=== PATIENT | male | born 1950 | race Caucasian/White ===

== ENCOUNTER 2020-07-14 07:29 | Outpatient (REF) | payer MEDICARE, OTHER, SELFPAY ==
[2020-07-14 12:12] LABS: Alanine Aminotransferase 32 U/L (0-40); Albumin Level 4.6 g/dL (3.5-5.0); Alkaline Phosphatase 65 U/L (39-117); Anion Gap 14 (12-20); Aspartate Amino Transferase 20 U/L (5-37); Bilirubin Total 1.6 mg/dL (0.0-1.0); Blood Urea Nitrogen 15 mg/dL (9-16); Calcium 10.2 mg/dL (8.4-10.2); Carbon Dioxide 29 mmol/L (22-29); Chloride 104 mmol/L (96-108); Cholesterol 143 mg/dL; Estimated Glomerular Filt Rate > 60; Glucose Fasting 108 mg/dL (60-99); HDL Cholesterol 45 mg/dL; LDL Cholesterol Calculated 79 mg/dl; Potassium 4.9 mmol/l (3.3-5.1); Prostate Specific Antigen Scr 0.66 ng/mL (<0.05-4.0); Sodium 142 mmol/L (135-145); Total Protein 7.3 g/dL (6.5-8.0); Triglycerides 96 mg/dL
== END 2020-07-14 07:30 | disposition home or self-care (01) ==
LOC: HO.HMGCLDS 07:29
PROVIDERS: PCP Nurse Practitioner Family; Visit Provider Nurse Practitioner Family
DX: R17 Unspecified jaundice (principal); I10 Essential (primary) hypertension; Z12.5 Encounter for screening for malignant neoplasm of prostate
CPT/HCPCS: 36415; 80053; 80061; 84153; 84443

== ENCOUNTER 2020-09-10 07:26 | Outpatient (REF) | payer MEDICARE, OTHER, SELFPAY ==
[2020-09-10 12:08] LABS: Bilirubin Direct 0.4 mg/dL (0.0-0.5); Bilirubin Total 1.1 mg/dL (0.0-1.0)
== END 2020-09-10 07:27 | disposition home or self-care (01) ==
LOC: HO.HMGCLDS 07:26
PROVIDERS: PCP Nurse Practitioner Family; Visit Provider Nurse Practitioner Family
DX: R17 Unspecified jaundice (principal)
CPT/HCPCS: 36415; 82247; 82248

== ENCOUNTER 2022-03-02 07:33 | Outpatient (REF) | payer MEDICARE, OTHER, SELFPAY ==
[2022-03-02 11:29] LABS: Appearance Urine Turbid; Color Urine Yellow; Glucose Urine UA Negative (Negative); Leukocyte Esterase Urine Negative (Negative); Nitrite Urine Negative (Negative); PH 5.5 (5.0-9.0); Specific Gravity - Urine 1.025 (1.005-1.025); Urine Blood Trace (Negative); Urine Ketones Negative (Negative); Urine Protein Negative (Neg-Trace)
[2022-03-02 11:36] LABS: Bacteria Urine None Seen (None Seen); Hyaline Casts Urine 0-2 /LPF (0-2); RBC Urine 0-2 /HPF (0-2); Squamous Epithelial Cell Urine 0-2 /HPF (0-2); WBC Urine 0-5 /HPF (0-5)
[2022-03-02 11:49] LABS: Alanine Aminotransferase 38 U/L (0-40); Albumin Level 4.3 g/dL (3.5-5.0); Alkaline Phosphatase 52 U/L (39-117); Anion Gap 12 (12-20); Aspartate Amino Transferase 26 U/L (5-37); Bilirubin Total 1.2 mg/dL (0.0-1.0); Blood Urea Nitrogen 17 mg/dL (9-16); Carbon Dioxide 25 mmol/L (22-29); Chloride 107 mmol/L (96-108); Cholesterol 147 mg/dL; Estimated Glomerular Filt Rate > 60; Glucose Fasting 109 mg/dL (60-99); HDL Cholesterol 44 mg/dL; LDL Cholesterol Calculated 85 mg/dl; Potassium 4.2 mmol/L (3.3-5.1); Sodium 140 mmol/L (135-145); Triglycerides 93 mg/dL
[2022-03-02 12:15] LABS: Prostate Specific Antigen Scr 0.47 ng/mL (<0.05-4.0); TSH reflex Free T4 2.31 uIU/mL (0.32-4.0)
== END 2022-03-02 07:34 | disposition home or self-care (01) ==
LOC: HO.HMGCLDS 07:33
PROVIDERS: PCP Nurse Practitioner Family; Visit Provider Nurse Practitioner Family
DX: Z12.5 Encounter for screening for malignant neoplasm of prostate (principal); I10 Essential (primary) hypertension
CPT/HCPCS: 36415; 80053; 80061; 81001; 84153; 84443

== ENCOUNTER → 2022-06-29 09:26 | Outpatient (REF) | payer MEDICARE, OTHER, SELFPAY ==
--- NOTE | 2022-06-29 09:29 | CA_ITS ---
Transthoracic Echocardiogram Patient (Last, First, Middle): Angelo Johnson E Gender: Male Date of : 1950 Age: 72 Procedure Date: 06/29/2022 Procedure Type: Transthoracic Echocardiogram Location: OP Height: 175.26 cm Weight: 92.99 kg BSA: 2.09 m2 Heart Rate: bpm BP: 140 / 88 mmHg Gluing Machine Feeder: TO Referring MD: Didier Barahona [facility] Symptoms: R01.1 - Cardiac murmur, unspecified Study Quality: Fair ECG Rhythm: Sinus Conclusions: - The left ventricular systolic function is normal. The calculated ejection fraction is 57% by biplane method. - There is mildly increased left ventricular wall thickness. - There is moderate septal asymmetric hypertrophy. - There is mild mitral valve regurgitation. - There is mild tricuspid valve regurgitation. - There is mild dilatation of the ascending aorta measuring 4.20 cm. Findings Left Ventricle Normal left ventricular cavity size. There is mildly increased left ventricular wall thickness. The left ventricular systolic function is normal. The calculated ejection fraction is 57% by biplane method. There is no evidence of regional wall motion abnormalities. Diastolic function is normal for age. There is moderate septal asymmetric hypertrophy. Right Ventricle Normal right ventricular cavity size and systolic function. Atria Both atria are normal in size. Aortic Valve There is a normal trileaflet aortic valve. There is mild calcification of the aortic valve. There is no aortic valve stenosis. There is no aortic valve regurgitation. Mitral Valve The mitral valve appears normal. There is mild mitral valve regurgitation. There is no mitral valve stenosis. Pulmonic Valve The pulmonic valve is likely normal. Tricuspid Valve Normal tricuspid valve structure. There is mild tricuspid valve regurgitation. There is no evidence of pulmonary hypertension. Great Vessels There is mild dilatation of the ascending aorta measuring 4.20 cm. Venous The inferior vena cava is normal in size and collapses greater than 50% with inspiration. Pericardium/Pleural There is no evidence of pericardial effusion. Prior Study Comparison No prior study available for comparison. Measurements 2D Linear Measurements IVSd: 1.29 0.6-0.9/0.6-1.0 cm LVIDd: 4.94 3.9-5.3/4.2-5.9 cm LVIDd Index: 2.36 2.4-3.2/2.2-3.1 cm/m2 LVIDs: 2.75 2.0-3.6 cm LVPWd: 1.19 0.7-1.1 cm LA Diam: 4.10 2.7-3.8/3.0-4.0 cm LAIDs Index: 1.96 1.5-2.3 cm/m2 LV Mass: 299.48 67-162/88-224 g LV Mass Index: 143.29 43-95/49-115 g/m2 LVOT Diam: 2.20 3.0+(-)1.3 cm 2D Systolic Function EF 4C: 56.70 >55% EF 2C: 60.00 >55% EF BiP: 56.70 >55% Mitral Valve MV Pk E: 0.75 MV PK A: 1.08 MV Decel Time: 241.00 E/A: 0.70 E'Lateral: 6.96 E'Medial: 5.44 E/E' Med: 13.70 E/E' Lat: 10.70 PHT: 71.00 MVA PHT: 3.10 Decel [place]: 3.10 Aortic Valve AoV Pk [place]: 1.75 AoV Mn [place]: 1.26 AoV VTI: 0.39 AoV Pk Grad: 12.00 Aov Mn Grad: 7.00 BUZZ Cont.VTI: 2.23 LVOT LVOT Pk [place]: 1.17 LVOT Mn [place]: 0.71 LVOT VTI: 0.23 LVOT Pk Grad: 5.00 LVOT Mn Grad: 2.00 LVOT Diam: 2.20 LVOT Area: 3.80 Diastolic Function MV Pk E: 0.75 MV Pk A: 1.08 E/A: 0.70 E'Medial: 5.44 E/E' Med: 13.70 E' Laterial: 6.96 E/E' Lat: 10.70 Right Ventricle TAPSE (mm): 22.30 TVS' [place]: 18.00 Tricuspid Valve TR Pk [place]: 2.76 TR Pk Grad: 30.00 RA Press: 3.00 RVSP: 33.00 Great Vessels Aorta Sinus of Valsalva: 3.75 2.0-3.[address] [place]: 3.20 1.7-3.4 cm Ao Asc: 4.20 2.1-3.4 cm Updated in Other Vendor System with Status of Final Wayne Duran MD electronically signed on 07/01/2022 1:33:35 PM with status of Final
== END ==
LOC: HO.CARD 09:26
PROVIDERS: PCP Nurse Practitioner Family; Visit Provider Nurse Practitioner Family
DX: R01.1 Cardiac murmur, unspecified (principal)
CPT/HCPCS: 93306

== ENCOUNTER 2023-02-22 09:42 | Outpatient (AMB) | payer MEDICARE, OTHER, SELFPAY ==
[2023-02-22 09:48] VITALS: BP 138/74; PULSE 62; O2SAT 97; BMI 31.1
--- NOTE | 2023-02-22 09:48 | A.OFFPC_ITS ---
Vital Signs 02/22/23 09:48 Height 5 ft 8 in Weight 204 lb 8 oz BMI 31.1 BP 138/74 Blood Pressure Location Rt brachial Position Sitting Pulse 62 Pulse Source Pulse Oximeter Pulse Oximetry (%) 97 Oxygen Delivery Method Room Air Intake Visit Reasons: 4 month follow up HTN Allergies shellfish Allergy (Unknown, Uncoded 02/22/23 09:50) gout issues Medication List - Last Reconciled 02/22/23 by FAUSTINO Hamilton amlodipine 10 mg PO DAILY 90 days atorvastatin 10 mg PO DAILY hydrochlorothiazide 12.5 mg PO DAILY 90 days lisinopril 40 mg PO DAILY 90 days minoxidil 2.5 mg PO DAILY Tobacco use date assessed: 02/22/23 Fall risk assessment: No Falls in past year Last assessed Fall Risk: 02/22/23 Dental Screening Dental Screen Date: 02/22/23 Did you have a dental visit in the last 12 months?: Yes Did you have a dental problem in the last 6 months where you did not have access to dental care?: No Was dental information given to patient?: Patient has dentist HPI 4 month follow up HTN HPI Details HTN: Blood pressure is managed with amlodipine 10mg, lisinopril 40mg, and minoxidil 2.5mg. Pt reports that his blood pressure at home is in the upper 130s/80s. Will add hydrochlorothiazide 12.5mg. Denies chest pain, shortness of breath, headache, dizziness, and blurred vision. PFSH Surgical History H/O inguinal hernia repair Family History Father CVD (cardiovascular disease) Mother Stroke Social History Housing: House Alcohol intake: current Alcohol intake frequency: a few times a week Patient Tobacco Use Status: Never used Tobacco e-Cigarette/Vaping Use: Never Used Second Hand Smoke Exposure: No Current occupational status: retired Cognitive needs: No Hearing needs: No Vision needs: Yes Questionnaire Thrive Questionnaire Date Thrive assessed: 07/18/22 MILDRED-7 AMB Questionnaire MILDRED-7 Date MILDRED - 7 assessed: 07/18/22 Source: Developed by Drs. Brooks Sahu, Lory Vegas, Frankie Boss and colleagues, with an educational paul from [employer]. Review of Systems Const Reports as per HPI Physical exam (Primary Care) Vital Signs: Last Vital Signs Pulse 62 02/22/23 09:48 BP 138/74 02/22/23 09:48 Pulse Ox 97 02/22/23 09:48 Oxygen Delivery Method Room Air 02/22/23 09:48 BMI result Body Mass Index 31.1 Tobacco/Smoking Status: Tobacco use Status Tobacco use date assessed 02/22/23 02/22/23 09:53 Patient Tobacco Use Status Never used Tobacco 02/22/23 09:53 e-Cigarette/Vaping Use Never Used 02/22/23 09:53 Thrive Assessment: Date of Thrive Assessment Date Thrive assessed 07/18/22 02/22/23 09:53 Const General: cooperative Nutritional Appearance: obese Orientation/consciousness: patient oriented x3 Resp Effort & Inspection: normal respiratory effort Auscultation: clear to auscultation bilaterally Cardio Rate: regular rate Rhythm: regular rhythm Heart sounds: S1 normal heart sound present, S2 normal heart sound present and Murmur heart sound present systolic (faint) Neuro General: patient oriented x3 Extrem Right lower extremity: no edema Left lower extremity: no edema Psych Appearance: grossly normal Mental Status: mental status grossly normal Speech and movement: Normal speech and movement present Affect: normal affect Attitude: cooperative Thought process: Normal thought process present Thought content: Normal thought content present Insight: Good insight present (Psych) Judgement: Good judgement present (Psych) Assessment and Plan Assessment & Plan (1) HTN (hypertension): Comment: will cont to monitor BPs at home Code(s): I10 - Essential (primary) hypertension (2) Screening PSA (prostate specific antigen): Code(s): Z12.5 - Encounter for screening for malignant neoplasm of prostate Plan The patient agreed to the use of a medical imaging technologist for this encounter. Scribed for FAUSTINO Norris by korey Wu scribe, on 02/22/2023 at 10:00 EST. Orders: Orders Complete Blood Count Auto Diff Today I10 - Essential (primary) hypertension Comprehensive [place]. Panel Fast Today I10 - Essential (primary) hypertension TSH reflex Free T4 Today I10 - Essential (primary) hypertension UA CC w/rflx Micro + Cult Today I10 - Essential (primary) hypertension Lipid Panel Today I10 - Essential (primary) hypertension Prostate Specific Antigen Scr Today Z12.5 - Encounter for screening for malignant neoplasm of prostate AMB EKG-In Office Today I10 - Essential (primary) hypertension Medications: New hydrochlorothiazide 12.5 mg PO DAILY 90 tabs 0RF 90 days Coding Level of Care Code Est Pt Level 3 (58054) Diagnoses HTN (hypertension) I10 Screening PSA (prostate specific antigen) Z12.5
== END 2023-02-22 10:34 | disposition home or self-care (01) ==
PROVIDERS: Visit Provider Nurse Practitioner Family
DX: I10 Essential (primary) hypertension (principal); Z12.5 Encounter for screening for malignant neoplasm of prostate
CPT/HCPCS: 99213

== ENCOUNTER 2023-06-22 07:57 | Outpatient (REF) | payer MEDICARE, OTHER, SELFPAY ==
[2023-06-22 11:27] LABS: MANUAL DIFF FLAG NO
[2023-06-22 11:33] LABS: Basophils Percent Auto 0.6 % (0-2); Eosinophils Absolute Auto 0.1 X10*3/uL (0.0-0.4); Hematocrit 42.8 % (42.0-52.0); Hemoglobin 14.4 g/dl (14.0-18.0); Imm Gran Abs Auto 0.03 X10*3/uL (0.00-0.03); Imm Gran Pct Auto 0.6 % (0.0-0.4); Lymphocytes Absolute Auto 1.6 X10*3/uL (1.2-4.9); Lymphocytes Percent Auto 34.5 % (20-40); Mean Corpuscular HGB Conc 33.6 g/dl (31.0-36.0); Mean Corpuscular Hemoglobin 32.8 pg (27.0-33.0); Mean Corpuscular Volume 97.5 fL (80.0-98.0); Mean Platelet Volume 10.9 fL (9.4-12.4); Monocytes Absolute Auto 0.5 X10*3/uL (0.1-1.2); Monocytes Percent Auto 11.3 % (2-11); Neutrophils Absolute Auto 2.3 x10*3/uL (2.0-8.3); Platelet Count 162 X10*3/uL (160-400); Red Blood Count 4.39 X10*6/uL (4.60-5.80); Red Cell Distribution Width 12.8 % (11.0-16.0); White Blood Count 4.7 X10*3/uL (4.8-10.8)
[2023-06-22 11:37] LABS: Appearance Urine Clear; Color Urine Yellow; Glucose Urine UA Negative (Negative); Leukocyte Esterase Urine Small (1+) (Negative); Nitrite Urine Negative (Negative); PH 5.5 (5.0-9.0); UMIC TRIGGER UACC YES; Urine Blood Small (1+) (Negative); Urine Ketones Negative (Negative); Urine Protein Negative (Neg-Trace)
[2023-06-22 11:47] LABS: Bacteria Urine None Seen (None Seen); Hyaline Casts Urine 0-2 /LPF (0-2); RBC Urine 0-2 /HPF (0-2); Squamous Epithelial Cell Urine 0-2 /HPF (0-2); UACC Culture Trigger YES
[2023-06-22 12:09] LABS: Alanine Aminotransferase 27 U/L (0-40); Albumin Level 4.1 g/dL (3.5-5.0); Alkaline Phosphatase 53 U/L (39-117); Anion Gap 10 (12-20); Aspartate Amino Transferase 21 U/L (5-37); Bilirubin Total 1.2 mg/dL (0.0-1.0); Blood Urea Nitrogen 11 mg/dL (9-16); Calcium 10.2 mg/dL (8.4-10.2); Carbon Dioxide 25 mmol/L (22-29); Chloride 110 mmol/L (96-108); Cholesterol 138 mg/dL (<200); Estimated Glomerular Filt Rate > 60; Glucose Fasting 115 mg/dL (60-99); HDL Cholesterol 48 mg/dL (>40); LDL Cholesterol Calculated 76 mg/dL (<100); Sodium 141 mmol/L (135-145); Triglycerides 73 mg/dL (<150)
[2023-06-22 12:26] LABS: TSH reflex Free T4 2.09 uIU/mL (0.32-4.0)
== END 2023-06-22 07:58 | disposition home or self-care (01) ==
LOC: HO.HMGCLDS 07:57
PROVIDERS: PCP Nurse Practitioner Family; Visit Provider Nurse Practitioner Family
DX: I10 Essential (primary) hypertension (principal); R31.29 Other microscopic hematuria; Z12.5 Encounter for screening for malignant neoplasm of prostate
CPT/HCPCS: 36415; 80053; 80061; 81001; 84153; 84443; 85025; 87086

== ENCOUNTER 2023-07-19 08:54 | Outpatient (AMB) | payer MEDICARE, OTHER, SELFPAY ==
[2023-07-19 09:02] VITALS: BP 140/86; PULSE 59; O2SAT 97; BMI 32.6
--- NOTE | 2023-07-19 09:02 | A.OFFVIS_ITS ---
Intake Vital Signs 07/19/23 09:02 Height 5 ft 8 in Weight 214 lb 2 oz BMI 32.6 BP 140/86 H Blood Pressure Location Rt brachial Position Sitting Pulse 59 Pulse Source Pulse Oximeter Pulse Oximetry (%) 97 Oxygen Delivery Method Room Air Intake Visit Reasons: SWV G0439 Allergies shellfish Allergy (Unknown, Uncoded 07/19/23 09:08) gout issues Medication List - Last Reconciled 07/19/23 by FAUSTINO Hamilton amlodipine 10 mg PO DAILY 90 days atorvastatin 10 mg PO DAILY hydrochlorothiazide 12.5 mg PO DAILY 90 days lisinopril 40 mg PO DAILY 90 days minoxidil 2.5 mg PO DAILY HPI SWV G0439 HPI Details Pt is here for an SWV. Denies fever, chills, and dizziness. [place] [employer] of care in scan pile. PPP will be scanned in chart and copy will be given to pt. HPI Comments History of Present Illness Details OV: Hx of micro hem. Urine culture and cytology were ordered in the past but were not performed. Pt reported seeing a urologist in the past, described cysto, refuses to see a urologist currently, but will do culture, cytology, repeat UA, and CT urogram. denies any Hx of kidney stones, flank pains, or hematuria. PFSH Surgical History H/O inguinal hernia repair Family History Father CVD (cardiovascular disease) Mother Stroke Social History Housing: House Alcohol intake: current Alcohol intake frequency: a few times a week Patient Tobacco Use Status: Never used Tobacco e-Cigarette/Vaping Use: Never Used Second Hand Smoke Exposure: No Current occupational status: retired Cognitive needs: No Hearing needs: No Vision needs: Yes Questionnaire Medicare Wellness Checkup [age] What gender do you identify with?: male During the past 4 weeks, how much have you been bothered by emotional problems such as feeling anxious, depressed, irritable, sad or downhearted, and blue?: slightly During the past 4 weeks, has your physical & emotional health limited your social activities with family, friends, neighbors, or groups?: not at all During the past 4 weeks, how much bodily pain have you generally had?: very mild pain During the past 4 weeks, was someone available to help you if you needed & wanted help?: yes, quite a bit During the past 4 weeks, what was the hardest physical activity you could do for at least 2 minutes?: heavy Can you get to places out of walking distance without help? (For eg., can you travel alone on buses, taxis or drive your car?): Yes Can you go shopping for groceries or clothes without someone's help?: Yes Can you prepare your own meals?: Yes Can you do your housework without help?: Yes Because of any health problems, do you need the help of another person with your personal care needs such as eating, bathing, dressing or getting around the house?: No Can you handle your own money without help?: Yes During the past 4 weeks, how would you rate your health in general?: good During the past 4 weeks how have things been going for you?: pretty well Are you having difficulties driving your car?: no Do you always fasten your seat belt when you are in a car?: yes, usually During past 4 weeks, have you been bothered by the following: never: Falling or dizzy when standing up, Trouble eating well? and Problems using the telephone? and seldom: Sexual problems?, Teeth or denture problems? and Tiredness or fatigue? Have you fallen 2 or more times in the past year?: No Are you afraid of falling?: Yes Are you a smoker?: no During the past 4 weeks, how many drinks of wine, beer, or other alcoholic beverages did you have?: 6-9 drinks per week Do you exercise for about 20 minutes 3 or more times a week?: yes, most of the time Have you been given information to help with the following?: yes: Hazards in your house that might hurt you? How often do you have trouble taking medicines the way you have been told to take them?: I always take medicine as prescribed How confident are you that you can control & manage most of your health problems?: somewhat confident What is your race?: White Mini Mental State Exam (MMSE) Orientation What is the (year) (season) (date) (day) (month)?: year (2023) Where are we (state) (county) (town or city) (hospital) (floor)?[place] state ([place]v) Registration Name of 3 unrelated objects clearly and slowly, then ask patient to repeat all 3 of them. (1st repeat determines score. Make sure they can repeat all three): object 1, object 2 and object 3 Attention & Calculation (CHOOSE ONE) Spell WORLD backwards (DLROW): 5 letters Recall Ask patient to repeat the 3 items from question #3.: object 1, object 2 and object 3 Language Show patient a wristwatch & ask what it is. Repeat for pencil.: watch and pencil Ask the patient to repeat the phrase 'No ifs, ands, or buts' after you.: correct Ask the patient to 'take a piece of paper with their right hand' 'fold paper in half' 'place paper on floor': take paper in right hand, fold paper in half and place paper on floor Print the sentence 'CLOSE YOUR EYES' on a piece. If patient actually closes eyes then score.: followed written direction Give patient a blank piece of paper & ask to write a sentence. Score if it contains a noun & verb.: sentence contains subject and verb Ask patient to copy figure of intersecting pentagons exactly. Score if all 10 angles & 2 intersects are included.: all 10 angles present & 2 are intersected Score Score: 22 Activity of Daily Living Bathing - sponge bath, tub bath or shower: receives no assistance (gets in/out by self, if usual bathing means Dressing - getting clothes from closets & drawers, including inner/outer garments & fasteners.: gets clothes & gets completely dressed without help Toileting - going to the 'toilet room' for urine/bowel elimination & cleaning self/arranging clothes: goes to toilet room, cleans self, arranges clothes without help Transfer: moves in & out of bed and chair without help (may use support object) Continence: controls urination/bowel movements completely by self Feeding: feeds self without help Total Score: 0 Information obtained from: patient Using telephone: independent Traveling: independent Shopping: independent Preparing meals: independent Housework: independent Taking medicine: independent Managing money: independent PHQ-9 Over the last 2 weeks, how often have you been bothered by any of the following problems? 1. Little interest or pleasure in doing things: not at all 2. Feeling down, depressed, or hopeless: not at all 3. Trouble falling or staying asleep, or sleeping too much: several days 4. Feeling tired or having little energy: several days 5. Poor appetite or overeating: not at all 6. Feeling bad about yourself - or that you are a failure or have let yourself or your family down: not at all 7. Trouble concentrating on things, such as reading the newspaper or watching television: not at all 8. Moving or speaking so slowly that other people could have noticed. Or the opposite - being so fidgety or restless that you have been moving around a lot more than usual: not at all 9. Thoughts that you would be better off or of hurting yourself in some way: not at all Total score: 2 Depression Screening Interpretation: Negative Depression Screening Done: Yes Source: Developed by Drs. Brooks Sahu, Lory Vegas, Frankie Boss and colleagues, with an educational paul from [employer]. Review of Systems Const Reports as per HPI Physical Exam Vital Signs: Last Vital Signs Pulse 59 07/19/23 09:02 Pulse Ox 97 07/19/23 09:02 Oxygen Delivery Method Room Air 07/19/23 09:02 BMI result Body Mass Index 32.6 Const General: cooperative Orientation/consciousness: patient oriented x3 Neuro Other: - romberg, can tandem walk, can walk and turn, can rise from sitting to standing, passed whisper test General: patient oriented x3 Psych Appearance: grossly normal Mental Status: mental status grossly normal Speech and movement: Normal speech and movement present Affect: normal affect Attitude: cooperative Thought process: Normal thought process present Thought content: Normal thought content present Insight: Good insight present (Psych) Judgement: Good judgement present (Psych) Assessment & Plan Assessment & Plan (1) Loss of hearing: Code(s): H91.90 - Unspecified hearing loss, unspecified ear Plan: Referred to speech and hearing (2) Microhematuria: Code(s): R31.29 - Other microscopic hematuria (3) Medicare annual wellness visit, subsequent: Code(s): Z00.00 - Encounter for general adult medical examination without abnormal findings Plan The patient agreed to the use of a medical coding technician for this encounter. Scribed for FAUSTINO Norris by Agnieszka Castellon medical coding technician, on 07/19/2023 at 09:15 EST. Orders: Referrals Speech and Hearing Referral H91.90 - Unspecified hearing loss, unspecified ear Quality Reporting (2019) Depression/Bipolar (159/160/161/177) PHQ-9: Total score: 2 Coding Level of Care Code Medicare Subsequent (G0439) Est Pt Level 3 (70691) Diagnoses Loss of hearing H91.90 Microhematuria R31.29 Medicare annual wellness visit, subsequent Z00.00 Advance Care Planning Forms completed: Health Care Proxy (form given to pt to fill out), MOLST (form given to pt to fill out) and Living will (pt reported this is already done)
== END 2023-07-19 09:33 | disposition home or self-care (01) ==
PROVIDERS: Visit Provider Nurse Practitioner Family
DX: Z00.00 Encounter for general adult medical examination without abnormal findings (principal); R31.29 Other microscopic hematuria; H91.93 Unspecified hearing loss, bilateral
CPT/HCPCS: G0439

== ENCOUNTER 2023-08-03 07:44 | Outpatient (REF) | payer MEDICARE, OTHER, SELFPAY ==
[2023-08-03 11:31] LABS: Urine Cytology See Pathology rpt
[2023-08-03 11:44] LABS: Appearance Urine Clear; Color Urine Yellow; Glucose Urine UA Negative (Negative); Leukocyte Esterase Urine Negative (Negative); Nitrite Urine Negative (Negative); PH 6.5 (5.0-9.0); Urine Blood Negative (Negative); Urine Ketones Negative (Negative); Urine Protein Negative (Neg-Trace)
== END 2023-08-03 07:45 | disposition home or self-care (01) ==
LOC: HO.HMGCLDS 07:44
PROVIDERS: PCP Nurse Practitioner Family; Visit Provider Nurse Practitioner Family
DX: R31.29 Other microscopic hematuria (principal); I10 Essential (primary) hypertension
CPT/HCPCS: 81003; 87086; 88112

== ENCOUNTER 2023-09-29 09:18 | Outpatient (REF) | payer MEDICARE, OTHER, SELFPAY | END 2023-09-29 09:19 | disposition home or self-care (01) | LOC: HO.SH 09:18 | PROVIDERS: PCP Nurse Practitioner Family; Visit Provider Nurse Practitioner Family | DX: Z01.118 Encounter for examination of ears and hearing with other abnormal findings (principal); H90.3 Sensorineural hearing loss, bilateral | CPT/HCPCS: 92557; 92567 ==

== ENCOUNTER 2024-01-15 09:14 | Outpatient (AMB) | payer MEDICARE, OTHER, SELFPAY ==
[2024-01-15 09:15] VITALS: BP 154/82; PULSE 80; O2SAT 95; BMI 31.4
--- NOTE | 2024-01-15 09:15 | MHC.PC.OV ---
Vital Signs 01/15/24 09:15 01/15/24 09:34 Height 5 ft 8 in Weight 206 lb 4 oz BMI 31.4 BP 154/82 H 126/66 Blood Pressure Location Lt brachial Lt brachial Position Sitting Sitting Pulse 80 Pulse Source Pulse Oximeter Pulse Oximetry (%) 95 Oxygen Delivery Method Room Air Intake Visit Reasons: 6 month follow up Intake Note: Pt is here today for 6 month follow up Allergies shellfish Allergy (Unknown, Uncoded 01/15/24 10:06) gout issues Tobacco use date assessed: 01/15/24 Fall risk assessment: No Falls in past year Last assessed Fall Risk: 01/15/24 Dental Screening Dental Screen Date: 01/15/24 Did you have a dental visit in the last 12 months?: Yes Did you have a dental problem in the last 6 months where you did not have access to dental care?: No Was dental information given to patient?: Patient has dentist HPI 6 month follow up HPI Details HTN: Blood pressure is managed with amlodipine 10mg, hydrochlorothiazide 12.5mg, and lisinopril 40mg. Will have pt monitor his BP at home. Will order labs. Denies chest pain, shortness of breath, headache, dizziness, and blurred vision. PFSH Surgical History H/O inguinal hernia repair Family History Father CVD (cardiovascular disease) Mother Stroke Social History Housing: House Alcohol intake: current Alcohol intake frequency: a few times a week Patient Tobacco Use Status: Never used Tobacco e-Cigarette/Vaping Use: Never Used Second Hand Smoke Exposure: No Current occupational status: retired Cognitive needs: No Hearing needs: No Vision needs: Yes Questionnaire PHQ-9 Over the last 2 weeks, how often have you been bothered by any of the following problems? 1. Little interest or pleasure in doing things: not at all 2. Feeling down, depressed, or hopeless: not at all 3. Trouble falling or staying asleep, or sleeping too much: not at all 4. Feeling tired or having little energy: not at all 5. Poor appetite or overeating: not at all 6. Feeling bad about yourself - or that you are a failure or have let yourself or your family down: not at all 7. Trouble concentrating on things, such as reading the newspaper or watching television: not at all 8. Moving or speaking so slowly that other people could have noticed. Or the opposite - being so fidgety or restless that you have been moving around a lot more than usual: not at all 9. Thoughts that you would be better off or of hurting yourself in some way: not at all Total score: 0 Depression Screening Interpretation: Negative Depression Screening Done: Yes 06926 - PHQ-9 Billing: Yes Source: Developed by Drs. Brooks Sahu, Lory Vegas, Frankie Boss and colleagues, with an educational paul from [employer]. Thrive Questionnaire Date Thrive assessed: 01/15/24 I am a: Patient What is your living situation today?: I have a steady place to live Within the past 12 months, did the food you bought not last and you didn't have the money to get more?: Never true Within the past 12 months, did you worry whether your food would run out before you got money to buy more?: Never true Do you have trouble paying for medicines?: No Do you have trouble getting transportation to medical appointments?: No Do you have trouble paying your heating and electricity bill?: No Do you have trouble taking care of your child, family member or friend?: No Do you have trouble with day-to-day activities such as bathing, preparing meals, shopping, managing finances, etc.?: No Are you currently unemployed and looking for a job?: No Are you interested in more education?: No Please select the resources that you would like help with: Housing/Usp Currently or been in a relationship where the following occur: No concerns reported THRIVE Score: 0 AUDIT C Alcohol Use Questionnaire (AUDIT-C) 1. How often do you have a drink containing alcohol?: 4 or more times a week 2. How many drinks containing alcohol do you have on a typical day when you are drinking?: 1 or 2 3. How often do you have six or more drinks on one occasion?: Less than monthly Total Score: 5 Score Reviewed/Action Taken: Yes MILDRED-7 AMB Questionnaire MILDRED-7 Date MILDRED - 7 assessed: 01/15/24 Feeling nervous, anxious, or on edge: 0 = Not at all Not being able to stop or control worryin = Not at all Worrying too much about different things: 0 = Not at all Trouble relaxin = Not at all Being so restless that it is hard to sit still: 1 = Several days Becoming easily annoyed or irritable: 0 = Not at all Feeling afraid as if something awful might happen: 0 = Not at all Total MILDRED-7 score (0-4 normal; 5-9 mild; 10-14 moderate; 15-21 severe): 1 Source: Developed by Drs. Brooks Sahu, Lory Vegas, Franike Boss and colleagues, with an educational paul from [employer]. MILDRED-7 Assessment Billing MILDRED-7 Assessment Tool: MILDRED-7 Assessment 15467 Review of Systems Const Reports as per HPI Physical exam (Primary Care) Vital Signs: Last Vital Signs Pulse 80 01/15/24 09:15 BP 154/82 H 01/15/24 09:15 Pulse Ox 95 01/15/24 09:15 Oxygen Delivery Method Room Air 01/15/24 09:15 BMI result Body Mass Index 31.4 Tobacco/Smoking Status: Tobacco use Status Tobacco use date assessed 01/15/24 01/15/24 09:18 Patient Tobacco Use Status Never used Tobacco 01/15/24 09:18 e-Cigarette/Vaping Use Never Used 01/15/24 09:18 PHQ-9: PHQ-9 Score PHQ-9: Total score 0 01/15/24 09:25 Depression Screening Interpretation: Negative Thrive Assessment: Date of Thrive Assessment Date Thrive assessed 01/15/24 01/15/24 09:18 Currently or been in a relationship where the following occur: No concerns reported Const General: cooperative Orientation/consciousness: patient oriented x3 Resp Effort & Inspection: normal respiratory effort Auscultation: clear to auscultation bilaterally Cardio Rate: regular rate Rhythm: regular rhythm Heart sounds: S1 normal heart sound present, S2 normal heart sound present and Murmur heart sound present systolic (faint) Neuro General: patient oriented x3 Extrem Right lower extremity: edema (trace) Left lower extremity: edema (trace) Psych Appearance: grossly normal Mental Status: mental status grossly normal Speech and movement: Normal speech and movement present Affect: normal affect Attitude: cooperative Thought process: Normal thought process present Thought content: Normal thought content present Insight: Good insight present (Psych) Judgement: Good judgement present (Psych) Assessment and Plan Assessment & Plan (1) HTN (hypertension): Comment: will cont to monitor BPs at home Code(s): I10 - Essential (primary) hypertension Plan: Labs ordered, will have pt monitor his BP at home Plan The patient agreed to the use of a nurses medical assistants phlebotomists for this encounter. Scribed for FAUSTINO Norris by Agnieszka Castellon nurses medical assistants phlebotomists, on 01/15/2024 at 09:25 EST. Orders: Orders Complete Blood Count Auto Diff Today I10 - Essential (primary) hypertension TSH reflex Free T4 Today I10 - Essential (primary) hypertension Lipid Panel Today I10 - Essential (primary) hypertension Comprehensive [place]. Panel Fast Today I10 - Essential (primary) hypertension UA CC w/rflx Micro + Cult Today I10 - Essential (primary) hypertension Coding Level of Care Code Est Pt Level 3 (16123) Diagnoses HTN (hypertension) I10 Additional Codes MILDRED-7 Assessment Billing - MILDRED-7 Assessment Tool: MILDRED-7 Assessment 91758 ([id number])
[2024-01-15 09:34] VITALS: BP 126/66
== END 2024-01-15 10:55 | disposition home or self-care (01) ==
PROVIDERS: PCP Nurse Practitioner Family; Visit Provider Nurse Practitioner Family
DX: I10 Essential (primary) hypertension (principal)
CPT/HCPCS: 99213

== ENCOUNTER 2024-07-18 07:10 | Outpatient (REF) | payer MEDICARE, OTHER, SELFPAY ==
[2024-07-18 10:13] LABS: MANUAL DIFF FLAG NO
[2024-07-18 10:22] LABS: Basophils Absolute Auto 0.1 X10*3/uL (0.0-0.2); Basophils Percent Auto 1.1 % (0-2); Eosinophils Absolute Auto 0.1 X10*3/uL (0.0-0.4); Eosinophils Percent Auto 2.8 % (0-4); Hematocrit 44.4 % (42.0-52.0); Hemoglobin 14.8 g/dl (14.0-18.0); Imm Gran Abs Auto 0.03 X10*3/uL (0.00-0.03); Imm Gran Pct Auto 0.6 % (0.0-0.4); Mean Corpuscular HGB Conc 33.3 g/dl (31.0-36.0); Mean Corpuscular Hemoglobin 32.7 pg (27.0-33.0); Mean Platelet Volume 11.1 fL (9.4-12.4); Monocytes Absolute Auto 0.5 X10*3/uL (0.1-1.2); Neutrophils Percent Auto 43.5 % (45-73); Platelet Count 166 X10*3/uL (160-400); Red Blood Count 4.53 X10*6/uL (4.60-5.80); Red Cell Distribution Width 12.9 % (11.0-16.0); White Blood Count 4.7 X10*3/uL (4.8-10.8)
[2024-07-18 10:42] LABS: Alanine Aminotransferase 28 U/L (0-40); Albumin Level 4.2 g/dL (3.5-5.0); Alkaline Phosphatase 53 U/L (39-117); Anion Gap 8 (12-20); Aspartate Amino Transferase 26 U/L (5-37); Bilirubin Total 1.1 mg/dL (0.0-1.0); Blood Urea Nitrogen 13 mg/dL (9-16); Calcium 10.2 mg/dL (8.4-10.2); Carbon Dioxide 28 mmol/L (22-29); Chloride 110 mmol/L (96-108); Cholesterol 141 mg/dL (<200); Estimated Glomerular Filt Rate > 60; Glucose Fasting 115 mg/dL (60-99); HDL Cholesterol 49 mg/dL (>40); LDL Cholesterol Calculated 79 mg/dL (<100); Potassium 4.1 mmol/L (3.3-5.1); Sodium 142 mmol/L (135-145); Total Protein 7.3 g/dL (6.5-8.0); Triglycerides 69 mg/dL (<150)
[2024-07-18 11:00] LABS: TSH reflex Free T4 2.17 uIU/mL (0.32-4.0)
[2024-07-18 11:06] LABS: Appearance Urine Turbid; Color Urine Dark Yellow; Glucose Urine UA Negative (Negative); Leukocyte Esterase Urine Negative (Negative); Nitrite Urine Negative (Negative); PH 5.5 (5.0-9.0); Specific Gravity - Urine 1.025 (1.005-1.025); UMIC TRIGGER UACC YES; Urine Blood Small (1+) (Negative); Urine Ketones Negative (Negative); Urine Protein Negative (Neg-Trace)
[2024-07-18 11:23] LABS: Bacteria Urine None Seen (None Seen); Hyaline Casts Urine 0-2 /LPF (0-2); RBC Urine 0-2 /HPF (0-2); Squamous Epithelial Cell Urine 0-2 /HPF (0-2); WBC Urine 0-5 /HPF (0-5)
== END 2024-07-18 07:11 | disposition home or self-care (01) ==
LOC: HO.HMGCLDS 07:10
PROVIDERS: PCP Nurse Practitioner Family; Visit Provider Nurse Practitioner Family
DX: I10 Essential (primary) hypertension (principal)
CPT/HCPCS: 36415; 80053; 80061; 81001; 81003; 84443; 85025

== ENCOUNTER 2024-07-23 08:55 | Outpatient (AMB) | payer MEDICARE, OTHER, SELFPAY ==
[2024-07-23 08:56] VITALS: BP 122/78; PULSE 83; TEMP 36.6; O2SAT 94; BMI 32.2
--- NOTE | 2024-07-23 08:56 | A.OFFVIS_ITS ---
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 Required: No Accompanied by: Self / Same As Patient Allergies shellfish Allergy (Unknown, Uncoded 07/23/24 08:56) gout issues Do you need a note to return to daycare/school/sports/work: No HPI SWV G0439 HPI Details awv: CCC in scan pile, PPP in scan pile PFSH Surgical History H/O inguinal hernia repair Family History Father CVD (cardiovascular disease) Mother Stroke Social History Housing: House Alcohol intake: current Alcohol intake frequency: a few times a week Patient Tobacco Use Status: Never used Tobacco e-Cigarette/Vaping Use: Never Used Second Hand Smoke Exposure: No Current occupational status: retired Cognitive needs: No Hearing needs: No Vision needs: Yes Questionnaire Medicare Wellness Checkup [age] What gender do you identify with?: male During the past 4 weeks, how much have you been bothered by emotional problems such as feeling anxious, depressed, irritable, sad or downhearted, and blue?: slightly During the past 4 weeks, has your physical & emotional health limited your social activities with family, friends, neighbors, or groups?: not at all During the past 4 weeks, how much bodily pain have you generally had?: very mild pain During the past 4 weeks, was someone available to help you if you needed & wanted help?: yes, quite a bit During the past 4 weeks, what was the hardest physical activity you could do for at least 2 minutes?: heavy Can you get to places out of walking distance without help? (For eg., can you travel alone on buses, taxis or drive your car?): Yes Can you go shopping for groceries or clothes without someone's help?: Yes Can you prepare your own meals?: Yes Can you do your housework without help?: Yes Because of any health problems, do you need the help of another person with your personal care needs such as eating, bathing, dressing or getting around the house?: No Can you handle your own money without help?: Yes During the past 4 weeks, how would you rate your health in general?: good During the past 4 weeks how have things been going for you?: pretty well Are you having difficulties driving your car?: no Do you always fasten your seat belt when you are in a car?: yes, usually During past 4 weeks, have you been bothered by the following: never: Falling or dizzy when standing up, Sexual problems?, Trouble eating well?, Teeth or denture problems? and Problems using the telephone? and seldom: Tiredness or fatigue? Have you fallen 2 or more times in the past year?: No Are you afraid of falling?: Yes Are you a smoker?: no During the past 4 weeks, how many drinks of wine, beer, or other alcoholic beverages did you have?: 6-9 drinks per week Do you exercise for about 20 minutes 3 or more times a week?: yes, most of the time Have you been given information to help with the following?: no: Hazards in your house that might hurt you? and no: Keeping track of your medications? How often do you have trouble taking medicines the way you have been told to take them?: I always take medicine as prescribed How confident are you that you can control & manage most of your health problems?: somewhat confident What is your race?: White Mini Mental State Exam (MMSE) Orientation What is the (year) (season) (date) (day) (month)?: year, season, date, day and month Where are we (state) (county) (town or city) (hospital) (floor)?: state, county, town or city, hospital/clinic and floor Registration Name of 3 unrelated objects clearly and slowly, then ask patient to repeat all 3 of them. (1st repeat determines score. Make sure they can repeat all three): object 1, object 2 and object 3 Attention & Calculation (CHOOSE ONE) Spell WORLD backwards (DLROW): 5 letters Recall Ask patient to repeat the 3 items from question #3.: object 1, object 2 and object 3 Language Show patient a wristwatch & ask what it is. Repeat for pencil.: watch and pencil Ask the patient to repeat the phrase 'No ifs, ands, or buts' after you.: correct Ask the patient to 'take a piece of paper with their right hand' 'fold paper in half' 'place paper on floor': take paper in right hand, fold paper in half and place paper on floor Print the sentence 'CLOSE YOUR EYES' on a piece. If patient actually closes eyes then score.: followed written direction Give patient a blank piece of paper & ask to write a sentence. Score if it contains a noun & verb.: sentence contains subject and verb Ask patient to copy figure of intersecting pentagons exactly. Score if all 10 angles & 2 intersects are included.: all 10 angles present & 2 are intersected Score Score: 30 Activity of Daily Living Bathing - sponge bath, tub bath or shower: receives no assistance (gets in/out by self, if usual bathing means Dressing - getting clothes from closets & drawers, including inner/outer garments & fasteners.: gets clothes & gets completely dressed without help Toileting - going to the 'toilet room' for urine/bowel elimination & cleaning self/arranging clothes: goes to toilet room, cleans self, arranges clothes without help Transfer: moves in & out of bed and chair without help (may use support object) Continence: controls urination/bowel movements completely by self Feeding: feeds self without help Total Score: 0 Information obtained from: patient Using telephone: independent Traveling: independent Shopping: independent Preparing meals: independent Housework: independent Taking medicine: independent Managing money: independent PHQ-9 Over the last 2 weeks, how often have you been bothered by any of the following problems? 1. Little interest or pleasure in doing things: not at all 2. Feeling down, depressed, or hopeless: not at all 3. Trouble falling or staying asleep, or sleeping too much: several days 4. Feeling tired or having little energy: several days 5. Poor appetite or overeating: not at all 6. Feeling bad about yourself - or that you are a failure or have let yourself or your family down: not at all 7. Trouble concentrating on things, such as reading the newspaper or watching television: not at all 8. Moving or speaking so slowly that other people could have noticed. Or the opposite - being so fidgety or restless that you have been moving around a lot more than usual: not at all 9. Thoughts that you would be better off or of hurting yourself in some way: not at all Total score: 2 Depression Screening Interpretation: Negative Depression Screening Done: Yes 16269 - PHQ-9 Billing: Yes Source: Developed by Drs. Brooks Sahu, Frankie Villalta and colleagues, with an educational paul from [employer]. MILDRED-7 AMB Questionnaire MILDRED-7 Date MILDRED - 7 assessed: 07/23/24 Feeling nervous, anxious, or on edge: 1 = Several days Not being able to stop or control worryin = Not at all Worrying too much about different things: 0 = Not at all Trouble relaxin = Not at all Being so restless that it is hard to sit still: 1 = Several days Becoming easily annoyed or irritable: 0 = Not at all Feeling afraid as if something awful might happen: 0 = Not at all Total MILDRED-7 score (0-4 normal; 5-9 mild; 10-14 moderate; 15-21 severe): 2 Source: Developed by Drs. Brooks Sahu, Lory Vegas, Frankie Boss and colleagues, with an educational paul from [employer]. MILDRED-7 Assessment Billing MILDRED-7 Assessment Tool: MILDRED-7 Assessment 93585 Physical Exam Vital Signs: Last Vital Signs Temp 97.9 F 07/23/24 08:56 Pulse 83 07/23/24 08:56 BP 122/78 07/23/24 08:56 Pulse Ox 94 07/23/24 08:56 BMI result Body Mass Index 32.2 Neuro Other: able to stand from sitting position. Able to tandem walk. neg rhomberg, passed whisper test Assessment & Plan Assessment & Plan (1) Screening PSA (prostate specific antigen): Code(s): Z12.5 - Encounter for screening for malignant neoplasm of prostate (2) Medicare annual wellness visit, subsequent: Code(s): Z00.00 - Encounter for general adult medical examination without abnormal findings Plan . Orders: Orders Prostate Specific Antigen Scr Today Z12.5 - Encounter for screening for malignant neoplasm of prostate Quality Reporting (2020) Depression/Bipolar (159/160/161/177) PHQ-9: Total score: 2 Coding Level of Care Code Medicare Subsequent (G0439) Diagnoses Screening PSA (prostate specific antigen) Z12.5 Medicare annual wellness visit, subsequent Z00.00 CPT Codes Advance Care Planning - Time spent: 1-15 minutes, on File ([id number]) Additional Codes MILDRED-7 Assessment Billing - MILDRED-7 Assessment Tool: MILDRED-7 Assessment 80456 ([id number]) PHQ-9 - 04939 - PHQ-9 Billing: Yes ([id number]) Advance Care Planning Forms completed: Health Care Proxy (will bring in from home), MOLST (done) and Living will (done (according to pt)) Time spent: 1-15 minutes, on File Actual minutes spent: 10
== END 2024-07-23 09:36 | disposition home or self-care (01) ==
PROVIDERS: PCP Nurse Practitioner Family; Visit Provider Nurse Practitioner Family
DX: Z00.00 Encounter for general adult medical examination without abnormal findings (principal); Z12.5 Encounter for screening for malignant neoplasm of prostate

== ENCOUNTER 2024-07-23 08:55 | Outpatient (REF) | payer MEDICARE, OTHER, SELFPAY ==
[2024-07-23 14:22] LABS: Prostate Specific Antigen Scr 0.88 ng/mL (<0.05-4.0)
== END 2024-07-23 08:56 | disposition home or self-care (01) ==
LOC: HO.HMGCLDS 08:55
PROVIDERS: PCP Nurse Practitioner Family; Visit Provider Nurse Practitioner Family
DX: Z00.00 Encounter for general adult medical examination without abnormal findings (principal); Z12.5 Encounter for screening for malignant neoplasm of prostate
CPT/HCPCS: 36415; 84153; 96127

== ENCOUNTER 2025-01-27 10:46 | Outpatient (AMB) | payer MEDICARE, OTHER, SELFPAY ==
[2025-01-27 10:54] VITALS: BP 150/90; PULSE 85; RESP 16; TEMP 36.2; O2SAT 95; BMI 32.4
--- NOTE | 2025-01-27 10:54 | MHC.PC.OV ---
Vital Signs 01/27/25 10:54 01/27/25 11:16 Height 5 ft 8 in Weight 213 lb BMI 32.4 BP 150/90 H 130/82 Blood Pressure Location Lt brachial Rt brachial Position Sitting Sitting Respiration 16 Pulse 85 Pulse Source Pulse Oximeter Temp 97.1 F Temp Source Oral Pulse Oximetry (%) 95 Oxygen Delivery Method Room Air Intake Visit Reasons: 6 months f/up Accompanied by: Self / Same As Patient Allergies shellfish Allergy (Unknown, Uncoded 01/27/25 11:19) gout issues Medication List - Last Reconciled 01/27/25 by Didier Barahona, [facility]- amlodipine 10 mg PO DAILY 90 days atorvastatin 10 mg PO DAILY lisinopril 40 mg PO DAILY 90 days minoxidil 2.5 mg PO DAILY Tobacco use date assessed: 01/27/25 Fall risk assessment: No Falls in past year Last assessed Fall Risk: 01/27/25 Dental Screening Dental Screen Date: 01/27/25 Did you have a dental visit in the last 12 months?: Yes Did you have a dental problem in the last 6 months where you did not have access to dental care?: No Was dental information given to patient?: Patient has dentist HPI 6 months f/up HPI Details Chief Complaint The patient presents for routine health maintenance and blood pressure management. History of Present Illness The patient is a 74-year-old male presenting with routine health maintenance and blood pressure management. He has been advised to monitor his diet and engage in regular physical activity to maintain stable blood pressure levels. He has been encouraged to undergo fasting laboratory tests in the near future to assess his overall health status. Social History Health Maintenance - Encouraged to monitor diet and exercise regularly - Recommended fasting laboratory tests in the near future Review of Systems - Cardiovascular: Denies chest pain, dyspnea - Gastrointestinal: Denies abdominal pain, hematochezia, constipation, diarrhea - Neurological: Denies dizziness, visual disturbances, headaches Physical Exam General: Cooperative, healthy appearing, comfortable, no acute distress and well developed, obese Orientation: Patient oriented x3 Limitations: No limitations Head: Normal to inspection Ears: Hearing grossly normal bilaterally Nose: Normal external nose present Face and sinus: Normal facial exam Eyes: Appearance normal, both eyes and all related structures Neck: Normal visual inspection and Yes full ROM Respiratory: Normal respiratory effort and able to speak in complete sentences. Clear to auscultation bilaterally Cardiovascular: Regular rate and rhythm. Normal S1 and S2 GI: Normal to inspection. Soft to palpation and nontender Skin: No rashes or lesions noted Neuro: Patient oriented x3 Extremities: Normal to inspection Results Plan The patient is advised to continue monitoring his diet and engage in regular physical activity to maintain stable blood pressure levels. He is encouraged to undergo fasting laboratory tests in the near future to assess his overall health status. Discussion Notes Patient Instructions - Continue to monitor your diet and exercise regularly to maintain stable blood pressure. - Schedule and complete fasting laboratory tests soon. [facility] Surgical History H/O inguinal hernia repair Family History Father CVD (cardiovascular disease) Mother Stroke Social History Housing: House Alcohol intake: current Alcohol intake frequency: a few times a week Patient Tobacco Use Status: Never used Tobacco e-Cigarette/Vaping Use: Never Used Second Hand Smoke Exposure: No Current occupational status: retired Cognitive needs: No Hearing needs: No Vision needs: Yes Questionnaire Thrive Questionnaire Date Thrive assessed: 01/27/25 I am a: Patient What is your living situation today?: I have a steady place to live Within the past 12 months, did the food you bought not last and you didn't have the money to get more?: Never true Within the past 12 months, did you worry whether your food would run out before you got money to buy more?: Never true Do you have trouble paying for medicines?: No Do you have trouble getting transportation to medical appointments?: No Do you have trouble paying your heating and electricity bill?: No Do you have trouble taking care of your child, family member or friend?: No Do you have trouble with day-to-day activities such as bathing, preparing meals, shopping, managing finances, etc.?: No Are you currently unemployed and looking for a job?: No Are you interested in more education?: No Please select the resources that you would like help with: None Currently or been in a relationship where the following occur: No concerns reported THRIVE Score: 0 AUDIT C Alcohol Use Questionnaire (AUDIT-C) 1. How often do you have a drink containing alcohol?: 2-4 times a month Total Score: 2 MILDRED-7 AMB Questionnaire MILDRED-7 Date MILDRED - 7 assessed: 07/23/24 Feeling nervous, anxious, or on edge: 1 = Several days Not being able to stop or control worryin = Several days Worrying too much about different things: 0 = Not at all Trouble relaxin = Not at all Being so restless that it is hard to sit still: 0 = Not at all Becoming easily annoyed or irritable: 0 = Not at all Feeling afraid as if something awful might happen: 0 = Not at all Total MILDRED-7 score (0-4 normal; 5-9 mild; 10-14 moderate; 15-21 severe): 2 Source: Developed by Drs. Brooks Sahu, Lory Vegas, Frankie Boss and colleagues, with an educational paul from [employer]. MILDRED-7 Assessment Billing MILDRED-7 Assessment Tool: MILDRED-7 Assessment 40233 Physical exam (Primary Care) Vital Signs: Last Vital Signs Temp 97.1 F 01/27/25 10:54 Pulse 85 01/27/25 10:54 Resp 16 01/27/25 10:54 BP 150/90 H 01/27/25 10:54 Pulse Ox 95 01/27/25 10:54 Oxygen Delivery Method Room Air 01/27/25 10:54 BMI result Body Mass Index 32.4 Tobacco/Smoking Status: Tobacco use Status Tobacco use date assessed 01/27/25 01/27/25 10:59 Patient Tobacco Use Status Never used Tobacco 01/27/25 10:59 e-Cigarette/Vaping Use Never Used 01/27/25 10:59 Thrive Assessment: Date of Thrive Assessment Date Thrive assessed 01/27/25 01/27/25 10:59 Currently or been in a relationship where the following occur: No concerns reported Coding Level of Care Code Est Pt Level 3 (17649) Diagnoses HTN (hypertension) I10 Screening PSA (prostate specific antigen) Z12.5 Additional Codes MILDRED-7 Assessment Billing - MILDRED-7 Assessment Tool: MILDRED-7 Assessment 78646 ([id number]) Assessment & Plan Assessment & Plan (1) HTN (hypertension): Comment: will cont to monitor BPs at home Code(s): I10 - Essential (primary) hypertension Category: Medical (2) Screening PSA (prostate specific antigen): Code(s): Z12.5 - Encounter for screening for malignant neoplasm of prostate Category: Medical Plan . Orders: Orders TSH reflex Free T4 Today I10 - Essential (primary) hypertension UA CC w/rflx Micro + Cult Today I10 - Essential (primary) hypertension Prostate Specific Antigen Scr Today Z12.5 - Encounter for screening for malignant neoplasm of prostate Complete Blood Count Auto Diff Today I10 - Essential (primary) hypertension Comprehensive [place]. Panel Fast Today I10 - Essential (primary) hypertension Lipid Panel Today I10 - Essential (primary) hypertension Medications: Refilled atorvastatin 10 mg PO DAILY 90 tabs 1RF
[2025-01-27 11:16] VITALS: BP 130/82
--- OUTSIDE RECORDS SUMMARY | 2025-01-27 11:42 | XMS_ITS | Patient Health Record ---
Author Organization [facility] Address [address] [place] [id number] Care Team Providers Care X Ray Operator Name Role Phone LARISSA RICHEY Primary Care Provider Osmany Hurtado Jr Unavailable [phone] Reason For Referral No Information Medications Medication SIG (Take, Route, Frequency, Duration) Notes Start Date End Date Status Atorvastatin Calcium 10 MG 1 tablet Oral ly Once a day for 30 day(s) Active Vitamin D3 1000 UNIT 1 capsule Orally On ce a day for 30 day(s) Active Colyte with Flavor Packs 240 GM As directed Orally Over the specified time. for 1 day(s) 09/26/2018 Active amLODIPine Besylate 2.5 MG 1 tablet Oral ly Once a day for 30 day(s) Active Lisinopril 10 MG 1 tablet Orally Once a day for 30 day(s) Active Immunizations Vaccine Route Administration Date Status Comme nts Influenza Unknown 05/01/2018 Administered Social History Tobacco Use: Social History Observation Description Date Details (start date - stop date) Never Smoker NA - NA Tobacco Use/Smoking Question Answer Notes Patient is a nonsmoker Alcohol Screen Question Answer Notes Did you have a drink contain ing alcohol in the past year? Yes How often did you have a dri nk containing alcohol in the past year? 2 to 3 times a week (3 points) How many drinks did you have on a typical day when you were drinking in the past year? 5 or 6 drinks (2 points) How often did you have 6 or more drinks on one occasion in the past year? Weekly (3 points) Points 8 Interpretation Positive Problems Problem Type SNOMED Code ICD Code Onset Dates Problem Status W/U Status Risk Notes Problem 688532555 Special screening for malignant neoplasms, colon (Z12.11) Active confirmed Problem [id number] Hypertension, unspecified type (I10) Active confirmed Plan Of Treatment Future Test Test Name Order Date COLONOSCOPY 09/26/2018 Insurance Providers Payer Name Payer Address Payer Phone Subscriber Number Group Number Insured Name Patient Relationship to Insured Coverage Start Date Coverage End Date MEDICARE [place] [address] [place] [phone] [id number] WEI ALEGRE Self - patient is the insured [employer] [address] [place] [phone] [id number] WEI ALEGRE Self - patient is the insured Medical (General) History Medical History History ICD Code hypertension elevated cholesterol Surgical History Surgery Date(Month/Year) oral surgery hernia repair
== END 2025-01-27 11:20 | disposition home or self-care (01) ==
LOC: HO.HMCC 10:47
PROVIDERS: PCP Nurse Practitioner Family; Visit Provider Nurse Practitioner Family
DX: I10 Essential (primary) hypertension (principal); Z12.5 Encounter for screening for malignant neoplasm of prostate

== ENCOUNTER → 2025-01-27 10:46 | Outpatient (BNVA) | payer MEDICARE, OTHER, SELFPAY | PROVIDERS: PCP Nurse Practitioner Family; Visit Provider Nurse Practitioner Family | DX: I10 Essential (primary) hypertension (principal) | CPT/HCPCS: 96127; 99212 ==